=== PATIENT | male | born 1995 | race Caucasian/White ===

== ENCOUNTER 2025-02-09 03:49 | Emergency (ER) | payer SELFPAY ==
[2025-02-09] MEDS: LORazepam 2 MG/ML SDV IVPUSH ONE (03:57)
[2025-02-09 04:15] LABS: BASOPHILS ABSOLUTE AUTO 0.06 K/uL (0.00-0.20); BASOPHILS PERCENT AUTO 0.5 % (0.0-1.0); EOSINOPHILS ABSOLUTE AUTO 0.12 K/uL (0.00-0.45); EOSINOPHILS PERCENT AUTO 1.1 % (0.0-6.0); IMMATURE GRAN ABSOLUTE AUTO 0.06 K/uL (0.00-0.05); IMMATURE GRAN PERCENT AUTO 0.5 % (0.0-0.4); LYMPHOCYTES ABSOLUTE AUTO 1.38 K/uL (1.00-4.80); LYMPHOCYTES PERCENT AUTO 12.5 % (24.0-44.0); MEAN PLATELET VOLUME 9.9 fL (9.4-12.4); MONOCYTES ABSOLUTE AUTO 1.25 K/uL (0.00-0.80); MONOCYTES PERCENT AUTO 11.3 % (0.0-8.0); NEUTROPHILS ABSOLUTE AUTO 8.20 K/uL (1.80-7.70); NEUTROPHILS PERCENT AUTO 74.1 % (41.0-71.0); NRBC ABSOLUTE 0.00 K/uL (0.00-0.02); NRBC PERCENT 0.0 /100WBC (0.0-0.2); PLATELET COUNT,PLT 260 K/uL (150-400); RED BLOOD CELL COUNT 5.49 M/uL (4.52-5.90); WHITE BLOOD CELL COUNT,WBC 11.07 K/uL (3.9-11.3)
[2025-02-09 04:45] LABS: BLOOD UREA NITROGEN,BUN 26 mg/dL (7.0-18.0); CARBON DIOXIDE,CO2 26.0 mmol/L (21.0-32.0); CHLORIDE,CL 102 mmol/L (98-107); CREATININE 1.2 mg/dL (0.8-1.3); EST CRCL DRUG DOSING (CG) 96.74 mL/min; ESTIMATED GFR 84 mL/min (>60); GLUCOSE RANDOM 139 mg/dL (74-106); POTASSIUM,K 3.7 mmol/L (3.5-5.1); SODIUM,NA 139 mmol/L (136-148); TSH ULTRASENSITIVE 1.80 uIU/mL (0.36-3.74)
== END 2025-02-09 04:55 | disposition home or self-care (01) ==
LOC: MW.ED 03:49
DX: R00.2 Palpitations (principal); E86.0 Dehydration
CPT/HCPCS: 36415; 71045; 71045-26; 80048; 84443; 84484; 85025; 85379; 93005; 99285